=== PATIENT | male | born 1960 | race Caucasian/White ===

== ENCOUNTER 2018-11-28 19:20 | Emergency (ER) | payer MEDICAID ==
[~2018-11-28] VITALS: Ht 175.3 cm; Wt 136.1 kg
[~2018-11-28 19:20] MED LIST: CEPH500 PO; RXCEPH500 PO
[2018-11-28] MEDS ORDERED: Percocet 5-3251 EACH PO (20:04)
[2018-11-28] MEDS ORDERED: PRED10 PO (20:04)
[2018-11-28] MEDS ORDERED: Indomethacin50 MG PO (20:04)
[2018-11-28] MEDS ORDERED: COLCHICINE0.6 MG PO (20:04)
== END 2018-11-28 20:30 | disposition home or self-care (01) ==
LOC: ER 19:20
DX: M10.9 Gout, unspecified (principal)
CPT/HCPCS: 99282; J7512

== ENCOUNTER → 2018-12-16 | Outpatient (CLI) | payer BC ==
[~2018-12-16] MED LIST changes: +COLCHICINE0.6 MG PO; +Indomethacin50 MG PO; +PRED10 PO; +Percocet 5-3251 EACH PO
== END | disposition home or self-care (01) ==
LOC: LAB SHORT 13:49 → LAB EV 13:49
DX: M25.562 Pain in left knee (principal)
CPT/HCPCS: 84550

== ENCOUNTER 2020-02-13 14:08 | Observation (INO) | payer BC, OTHER ==
[~2020-02-13] VITALS: Ht 175.3 cm; Wt 136.1 kg
[2020-02-13 15:57] LABS: Source, Urine Clean Catch
[2020-02-13 15:57] LABS: BASOPHILS ABSOLUTE AUTO 0.04 K/mm3 (0.00-0.23); BASOPHILS PERCENT AUTO 0 % (0-2); EOSINOPHILS ABSOLUTE AUTO 0.31 K/mm3 (0.00-0.68); EOSINOPHILS PERCENT AUTO 3 % (0-6); Hematocrit 42.4 % (37.0-53.0); Hemoglobin 13.3 g/dL (13.5-17.5); IMMATURE GRAN ABSOLUTE AUTO 0.02 K/mm3 (0.00-0.10); IMMATURE GRAN PERCENT AUTO 0 % (0-1); LYMPHOCYTES ABSOLUTE AUTO 1.77 K/mm3 (0.84-5.20); LYMPHOCYTES PERCENT AUTO 16 % (21-46); MONOCYTES ABSOLUTE AUTO 0.98 K/mm3 (0.16-1.47); MONOCYTES PERCENT AUTO 9 % (4-13); Mean Corpuscular HGB 28.2 pg (26.0-34.0); Mean Corpuscular HGB Conc 31.4 g/dL (31.5-36.5); Mean Corpuscular Volume 90 fL (80-100); Mean Platelet Volume 9.4 fL (9.1-12.4); NEUTROPHILS ABSOLUTE AUTO 8.05 K/mm3 (1.96-9.15); NEUTROPHILS PERCENT AUTO 72 % (41-73); Platelet Count 266 K/mm3 (150-400); RDW Coefficient Variation 13.1 % (11.7-14.2); RDW Standard Deviation 43.3 fL (35.1-46.3); Red Blood Cell Count 4.72 M/mm3 (4.30-5.90); White Blood Cell Count 11.17 K/mm3 (4.00-11.30)
[2020-02-13 16:02] LABS: Appearance, Urine Clear (Clear); Bilirubin, Urine Neg (Neg); Blood, Urine Neg (Neg); Color, Urine Yellow (P-Yellow); Glucose Qualitative, Urine Neg (Neg); Ketones, Urine Neg (Neg); Leukocyte Esterase, Urine Neg (Neg); Nitrite, Urine Neg (Neg); Protein, Urine Neg (Neg); Urobilinogen, Urine NORM (Normal)
[2020-02-13 16:17] LABS: Alanine Aminotransfer (ALT/SGP 30 U/L (12-78); Albumin, Blood 3.1 g/dL (3.4-5.0); Albumin/Globulin Ratio 0.9 (0.8-1.8); Alk Phos 93 U/L (50-136); Anion Gap 4 mmol/L (6-16); Aspartate Aminotrans (AST/SGOT 17 U/L (12-37); Bilirubin, Total 0.4 mg/dL (0.1-1.0); Blood Urea Nitrogen 11 mg/dL (8-24); CO2, Blood 28 mmol/L (21-32); Calcium, Blood 8.2 mg/dL (8.5-10.1); Chloride, Blood 108 mmol/L (98-108); Creatinine, Blood 0.92 mg/dL (0.60-1.20); Globulin, Blood 3.5 g/dL (2.2-4.0); Glomerular Filtration Rate >60 (60-); Glucose, Blood 104 mg/dL (70-99); Potassium, Blood 3.8 mmol/L (3.5-5.5); Sodium, Blood 140 mmol/L (136-145); Total Protein, Blood 6.6 g/dL (6.4-8.2)
--- NOTE | 2020-02-13 18:34 | NUR ---
"DAY SURGERY RN | TO OR PATIENT UP TO VOID PRIOR TO SURGERY. BOTH DOCTORS AND SAND MIXER HAVE SEEN PATIENT. REPORT TO ALONZO Bernard RN. TO OR."
--- NOTE | 2020-02-14 07:38 | NUR ---
SUMMARY PT POD 0 THIS SHIFT.NO C/O NAUSEA.DENIES NEED FOR PAIN MEDS THIS SHIFT. AMBULATORY FOR BRP. VOIDING WITHOUT DIFF.
[2020-02-14] MEDS ORDERED: AMOX-CLAV 875-1 EACH PO (12:38)
[2020-02-14] MEDS ORDERED: OXYC5 PO (12:39)
--- NOTE | 2020-02-14 13:13 | NUR ---
DISCHARGED CALLED [facility] PRESCRIPTION IN TO [facility] PER PT REQUEST. DC'D IVS, CATHETERS INTACT. REVIEWED DC PAPERWORK; PT VERBALIZED UNDERSTANDING. PT LEFT UNIT BY AMBULATION W/POSSESSIONS AND DC PAPERWORK IN HAND TO MEET RIDE AWAITING OUTSIDE.
[2020-02-21] MEDS ORDERED: Roxicodone5 MG PO (19:13)
== END 2020-02-14 13:00 | disposition home or self-care (01) ==
LOC: ER 14:08 → SURS 14:10 → ER 17:52 → SURS 17:52
PROVIDERS: Physician Assistant; ADMIT Surgery
PROC: 0DTJ4ZZ Resection of Appendix, Percutaneous Endoscopic Approach (ICD-10-PCS; principal; 2020-02-13 17:30)
DX: K35.80 Unspecified acute appendicitis (principal)
CPT/HCPCS: 36415; 74177; 80053; 81003; 83690; 85025; 88304; 93005; 93010; 96361; 96365; 96372; 99285-25; G0378; J1100; J1650; J1885; J2405; J2543; J2704; J3010; J7030; J7120; Q9967; U0002

== ENCOUNTER → 2020-07-08 | Outpatient (CLI) | payer BC ==
[~2020-07-08] MED LIST changes: +AMOX-CLAV 875-1 EACH PO; +OXYC5 PO; +Roxicodone5 MG PO
[2020-07-08 11:07] LABS: BASOPHILS ABSOLUTE AUTO 0.05 K/mm3 (0.00-0.23); BASOPHILS PERCENT AUTO 0 % (0-2); EOSINOPHILS PERCENT AUTO 2 % (0-6); Hematocrit 42.6 % (37.0-53.0); Hemoglobin 14.2 g/dL (13.5-17.5); IMMATURE GRAN ABSOLUTE AUTO 0.04 K/mm3 (0.00-0.10); IMMATURE GRAN PERCENT AUTO 0 % (0-1); LYMPHOCYTES PERCENT AUTO 12 % (21-46); MONOCYTES ABSOLUTE AUTO 1.37 K/mm3 (0.16-1.47); MONOCYTES PERCENT AUTO 10 % (4-13); Mean Corpuscular HGB 28.6 pg (26.0-34.0); Mean Corpuscular HGB Conc 33.3 g/dL (31.5-36.5); Mean Corpuscular Volume 86 fL (80-100); Mean Platelet Volume 9.2 fL (9.1-12.4); NEUTROPHILS PERCENT AUTO 76 % (41-73); Platelet Count 288 K/mm3 (150-400); RDW Coefficient Variation 13.6 % (11.7-14.2); RDW Standard Deviation 42.2 fL (35.1-46.3); Red Blood Cell Count 4.96 M/mm3 (4.30-5.90); White Blood Cell Count 13.86 K/mm3 (4.00-11.30)
== END ==
LOC: LAB SHORT 10:59 → LAB EV 10:59
PROVIDERS: Physician Assistant Surgical
DX: M79.674 Pain in right toe(s) (principal)
CPT/HCPCS: 84550; 85025

== ENCOUNTER 2025-03-24 12:26 | Day surgery (SDC) | payer OTHER ==
[~2025-03-24] VITALS: Ht 175.3 cm; Wt 142.9 kg
[~2025-03-24 12:26] MED LIST changes: +MAGOX 400400 M1 PO; +MULTI-VITAMIN1 EAC2 PO; +THERA-D2000 UNIT PO
[2025-03-24 14:27] VITALS: BP 148/92
== END 2025-03-24 14:44 | disposition home or self-care (01) ==
LOC: ORSCSDS 12:26
PROVIDERS: Surgery
PROC: 0DJD8ZZ Inspection of Lower Intestinal Tract, Via Natural or Artificial Opening Endoscopic (ICD-10-PCS; principal; 2025-03-24 14:00)
DX: Z12.11 Encounter for screening for malignant neoplasm of colon (principal); I10 Essential (primary) hypertension; R73.03 Prediabetes; G47.33 Obstructive sleep apnea (adult) (pediatric); K21.9 Gastro-esophageal reflux disease without esophagitis; E66.01 Morbid (severe) obesity due to excess calories; Z68.42 Body mass index [BMI] 45.0-49.9, adult
CPT/HCPCS: J2704; J7120